=== PATIENT | female | born 1975 | race Hispanic/Latino ===

== ENCOUNTER → 2016-10-27 | Outpatient (CLI) | payer BC | END | disposition home or self-care (01) | LOC: GMA 12:29 | PROVIDERS: ATTEND Nurse Practitioner Family | DX: R53.83 Other fatigue (principal) ==

== ENCOUNTER → 2016-11-02 | Outpatient (CLI) | payer BC ==
--- NOTE | 2016-11-03 08:18 | US ---
Pelvic sonogram, endovaginal CLINICAL HISTORY: Right lower quadrant pain. Pelvic pain. FINDINGS: The uterus measures 9.7 x 4.7 x 6.4 cm. There are 2 uterine fibroids one of these is myometrial to the right of midline 2 x 1.7 x 1.6 cm. The other is myometrial lower left 2.9 x 1 x 2.6 cm Endometrium 13-14 mm which is thick but within normal limits depending on the phase of the menstrual cycle within this premenopausal patient. No fluid or filling defect in the endometrial canal Right ovary measures 2.5 x 2.2 x 1.2 cm. Left ovary measures 2.9 x 2.7 x 2 cm. Within the left ovary there is a thick-walled cystic lesion measuring 2.2 x 1.7 x 1.7 cm likely a physiologic hemorrhagic cyst/corpus luteum. No imaging follow-up recommended. There is no adnexal mass lesion or free fluid IMPRESSION: 2 myometrial uterine fibroids Pelvic sonogram otherwise within normal limits, assuming premenopausal patient Electronically signed by: Олег Lal MD 11/03/2016 8:18 AM CDT
== END ==
LOC: US 13:29
PROVIDERS: ATTEND Nurse Practitioner Family
DX: R10.31 Right lower quadrant pain (principal); D25.9 Leiomyoma of uterus, unspecified

== ENCOUNTER → 2016-12-03 | Outpatient (CLI) | payer BC ==
--- NOTE | 2016-12-06 11:20 | MAM ---
EXAM DESCRIPTION: Screening Mammogram,Bilateral CLINICAL HISTORY: 41 years, Female, Screening mammogram COMPARISON: December 04, 2015 TECHNIQUE: CC and MLO digital mammograms with computer aided detection. FINDINGS: The breast parenchyma is heterogeneously dense which may decrease the sensitivity of mammography. There is no dominant mass nor any suspicious microcalcifications. Benign microcalcifications are present. IMPRESSION: BI-RADS 2: BENIGN FOLLOW-UP: Routine mammography screening. Electronically signed by: Jose Alejandro Stovall MD 12/06/2016 11:19 AM CDT
== END ==
LOC: MAMMO 08:42
PROVIDERS: ATTEND Family Medicine
DX: Z12.31 Encounter for screening mammogram for malignant neoplasm of breast (principal)

== ENCOUNTER → 2020-03-21 | Outpatient (CLI) | payer BC | END | disposition home or self-care (01) | LOC: YCFC.O 09:21 | PROVIDERS: ATTEND Nurse Practitioner Family | DX: Z11.3 Encounter for screening for infections with a predominantly sexual mode of transmission (principal) ==

== ENCOUNTER → 2020-03-26 | Outpatient (CLI) | payer BC ==
--- NOTE | 2020-03-27 08:33 | MAM ---
EXAM DESCRIPTION: 3D Screening BILATERAL : Digital Mammography. CLINICAL HISTORY: 44 years Female ANNUAL SCREENING . No complaints. No personal or family history of breast cancer. Menarche age 13. Childbirth age 25. Premenopausal. No HRT. Lifetime risk of developing breast cancer (Tyrer-Cuzick model)(%): 5.4. COMPARISON: 2-D digital screening bilateral mammography November 2016.. TECHNIQUE: Bilateral CC and MLO projection full-field images, digital tomosynthesis mammographic technique. Bilateral digital 2-D full-field MLO images. CAD available for 2-D images. FINDINGS: The breast parenchymal density pattern is: Heterogeneously dense breast tissue, which may obscure small masses. No skin thickening or nipple retraction. Since the prior study, a partially circumscribed mass is now visualized at the 12:30 - 1:00 position of the anterior right breast approximately 5 cm from the nipple. More dense than the surrounding fibroglandular elements and dimensions are approximately 1.2 x 1.2 cm. Not associated with microcalcifications. Partially circumscribed mass in the anterior third of the lower inner quadrant similar densities to surrounding fibroglandular tissues. Approximately 1.5 cm dimension, 6:30 position. This may have been present on the prior study, not well seen due to technique. Not associated with microcalcifications. A second mass approximately 2 cm posterior to the first mass is also partially circumscribed and in the lower left quadrant of the breast. Not well seen on the prior study. 7:00 position. Also same density as surrounding fibroglandular tissue. Not associated with microcalcifications. IMPRESSION: BI-RADS CATEGORY: 0 - INCOMPLETE- Need additional imaging evaluation. RECOMMENDATIONS: FOLLOW-UP: Recall for additional imaging: Bilateral directed breast ultrasound. Left breast full-field 2-D and tomosynthesis in the LM projection.. Written communication concerning the IMPRESSION and Follow-up, will be mailed to the patient and referring health care provider. Electronically signed by: Jakub Campo MD 03/27/2020 8:31 AM CDT
== END | disposition home or self-care (01) ==
LOC: MAMMO 14:30
PROVIDERS: ATTEND Nurse Practitioner Family
DX: Z12.31 Encounter for screening mammogram for malignant neoplasm of breast (principal)

== ENCOUNTER → 2020-04-28 | Outpatient (CLI) | payer BC ==
--- NOTE | 2020-04-29 16:54 | MAM ---
EXAM DESCRIPTION: 3D Diagnostic, Left (accession [id number]), Breast,Bilateral (accession [id number]): Ultrasound CLINICAL HISTORY: 45 yearsFemaleABN MAMMO one month recall for bilateral partially circumscribed masses. COMPARISON: Bilateral screening digital breast tomosynthesis March 26. TECHNIQUE: Left breast LM projection full-field images, digital tomosynthesis technique. Left breast 2-D digital full-field images: LM projection. CAD available for 2-D images.. Transcutaneous scanning of the bilateral breasts utilizing briscoe-scale and Doppler modes. Scanning performed by the gate services supervisor ; remote monitoring by Dr. Campo note: Patient is primarily Surinamese-speaking. FINDINGS: The breast parenchymal density pattern is: Heterogeneously dense breast tissue, which may obscure small masses. No skin thickening or nipple retraction circumscribed mass middle third of the left breast near the posterior nipple line, 7 cm from the nipple. Also approximately 7 to 8:00 position 4 cm from the nipple. Ultrasound: Scanning bilateral regions of interest. Mostly fibroglandular tissues. Circumscribed anechoic cyst 5 cm from the nipple at 1:00 measuring 1.4 x 1.3 cm. Wider than tall orientation and posterior acoustic enhancement. Adjacent smaller cysts also visualized, with typical features. Any one by 1 cm cyst also visualized with typical features. Cysts are nonvascular. No dominant solid mass, fluid collection, or large calcification. No overlying skin changes. Multiple anechoic cysts, circumscribed montalvo, wider than tall orientation, and posterior acoustic enhancement in the regions of interest left breast. These are surrounded by mostly fibroglandular tissues. These range in size from 7 to 5 mm. Largest cyst more posteriorly measures 1.1 cm x 0.9 cm with typical cystic ultrasound features. These cysts are nonvascular. No dominant solid mass, no fluid collection, no large calcifications. Overlying skin is unremarkable. IMPRESSION: Benign exam. BIRAD CATEGORY: 2 BENIGN FINDINGS. RECOMMENDATIONS: FOLLOW UP: Return to routine digital bilateral mammographic screening, one year interval from March 2020. Written communication explaining the IMPRESSION and follow-up, will be mailed to the patient and referring health care provider. The FINDINGS and the FOLLOW-UP plan were reviewed in person with the patient, with the assistance of a [place]e-[place] network account manager, after the examination. According to the [employer], yearly mammograms are recommended starting at age 40 and continuing as long as a woman is in good health. Any breast change noted on a breast self-exam should be reported promptly to the patient's healthcare provider. Breast MRI is recommended for women with an approximately 20-25% or greater lifetime risk of breast cancer, including women with a strong family history of breast or ovarian cancer and women who have been treated for Hodgkin's disease. A negative mammographic report should not delay tissue diagnosis in patients with significant clinical history or physical findings. Extremely dense breast tissue limits the sensitivity of digital mammography. Electronically signed by: Jakub Campo MD 04/29/2020 4:52 PM CDT
== END ==
LOC: MAMMO 14:58
PROVIDERS: ATTEND Family Medicine
DX: R92.8 Other abnormal and inconclusive findings on diagnostic imaging of breast (principal)
CPT/HCPCS: 76641; 77065; G0279

== ENCOUNTER 2020-06-02 16:51 | Inpatient (IN) | payer BC ==
--- NOTE | 2020-06-02 16:53 | ED.PDOC ---
History of Present Illness - General Time Seen by Provider: 06/02/20 16:52 Source: patient - History of Present Illness Initial Comments: 45-year-old female who is from Dr. Anderson's clinic for chief complaint of shortness of breath and chest tightness. Patient reports onset of symptoms 5 days ago with gradual worsening. Symptoms are much worse since this morning. She now reports constant tightness in the center of her chest with occasional radiation to the back, currently 10/10 severity, worse with coughing and heavy breathing, not necessarily worsened with exertion, not worse with palpation. She additionally reports frequent cough which is productive now for yellow phlegm. She has been taking [id number] Robitussin with little relief. Patient was seen today by Dr. Anderson and was found to be positive for COVID-19 and strep. She was also found to have oxygen desaturation to 90-92% with ambulation. Patient was recommended to come to the ED for further evaluation. She does report that her also recently tested positive for COVID-19. Additionally reports sore throat, body aches, subjective fevers and chills, nausea. Denies vomiting, diarrhea, abdominal pain, leg swelling, urinary symptoms, headache, congestion. Patient is otherwise relatively healthy. Denies any history of cardiac/respiratory issues or diabetes. Allergies/Adverse Reactions: Allergies NO KNOWN ALLERGY Allergy (Verified 06/02/20 17:11) Home Medications: Ambulatory Orders NK 06/02/20 Review of Systems - Review of Systems Review of Systems: 06/02/20 17:12 as per HPI All other Systems: Reviewed and Negative Past Medical History (General) - Patient Medical History Hx Congestive Heart Failure: No Hx Diabetes: No - Social History Hx Alcohol Use: Yes - Female History Patient : No Family Medical History - Family History Mother Family History: No Known Living Status: Still Living Physical Exam - Physical Exam General Appearance: Alert, Comfortable, No apparent distress Eye Exam: bilateral normal Ears, Nose, Throat: hearing grossly normal, pharyngeal erythema, other - no tonsillar exudate or swelling Neck: full range of motion, supple, normal inspection Respiratory: chest non-tender, no respiratory distress, no accessory muscle use, rales - BL lower and middle lung carrion w/o rhonchi or wheezing, good air movement throughout, able to speak in full sentences Cardiovascular/Chest: normal peripheral pulses, regular rate, rhythm, no edema, no gallop, no JVD, no murmur Peripheral Pulses: radial,right: 2+, radial,left: 2+ Gastrointestinal/Abdominal: soft, no organomegaly, tenderness - mild to epigastric region w/o guarding or rebound Back Exam: normal inspection, no CVA tenderness, no vertebral tenderness Extremity: normal range of motion, non-tender, normal inspection, no pedal edema, no calf tenderness, normal capillary refill Neurologic: tool distributor II-XII nml as tested, no motor/sensory deficits, alert, normal mood/affect, oriented x 3 Skin Exam: normal color, warm/dry Progress - Progress Progress: 06/02/20 17:14 Dyspnea, chest tightness -Suspect secondary to COVID-19 pneumonia. Consider also ACS, bacterial pneumonia, CHF, musculoskeletal chest pain, reactive airway disease, PE, other -Patient mostly with SPO2 92-94% on room air but briefly desatted to 88-90% with activity/ambulation, quickly corrects with 2 L supplemental oxygen via nasal cannula. Otherwise vitals within normal limits. -Obtain rapid flu testing, blood work, cardiac work-up, COVID-19 panel -Place peripheral IV, Decadron 6 mg IV, 1 L normal saline bolus, Zofran 4 mg IV, reassess 06/02/20 18:04 -Labs were consistent with COVID-19 infection. She does have modestly elevated D-dimer level will obtain CTA chest. Otherwise labs show leukopenia and slightly elevated CRP level. Troponin level normal. Patient has remained stable. She did have some burning sensation throughout her body following the Decadron and Zofran. Symptoms are improved with Benadryl 25 mg IV. 06/02/20 18:56 -CTA chest reviewed. Reveals bilateral groundglass opacities in bilateral lower small infiltrates per my read. I do not see any evidence of PE. -Patient continues to have desats to 88% with ambulation/activity. Otherwise she remains stable. After some discussion with patient and family at bedside, they are amenable to hospital admission for COVID-19 pneumonia with acute hypoxia. I have spoken with Kamran Gomez who accepts the patient for admission. We will begin therapy in the ER with Rocephin 1 g IV and azithromycin 500 mg IV. The hospitalist to put in further orders for Lovenox and remdesivir. Also to consider further IV Decadron. Shorty Watson MD Billing #[id number] 06/02/20 17:00 EKG STAT 06/02/20 18:03 CTA Chest [CT] Stat 06/02/20 18:55 Azithromycin IV [Zithromax IV] 500 mg Sodium Chloride 0.9% 250Ml [NS 250ml] 250 ml IVPB ONCE cefTRIAXone SODIUM [Rocephin] 1 gm Sodium Chl 0.9% 50Ml Min-Bag+ [NS 50ml MINI-BAG+] 50 ml IVPB ONCE Laboratory Results - last 24 hr 06/02/20 06/02/20 06/02/20 17:18 17:18 17:18 WBC 3.9 L RBC 5.07 Hgb 14.1 Hct 41.7 MCV 82.2 MCH 27.9 MCHC 34.0 RDW 16.7 H Plt Count 226 MPV 7.9 Absolute Neuts (auto) 1.30 L Absolute Lymphs (auto) 2.00 Absolute Monos (auto) 0.50 Absolute Eos (auto) 0.10 Absolute Basos (auto) 0.00 Neutrophils % 34.2 L Lymphocytes % 51.5 H Monocytes % 11.7 H Eosinophils % 1.3 Basophils % 1.3 PTT (SP) 27.0 D-Dimer, Quantitative 725.0 H* Sodium 138 Potassium 4.0 Chloride 102 Carbon Dioxide 25 Anion Gap 15.0 BUN 8 Creatinine 0.77 BUN/Creatinine Ratio 10.4 Random Glucose 112 H Serum Osmolality 274.8 L Calcium 8.8 Magnesium 2.1 Total Bilirubin 0.3 AST 34 ALT 30 Alkaline Phosphatase 79 LD Total 162 Creatine Kinase 58 Troponin I C-Reactive Protein 5.6 H B-Natriuretic Peptide 36.8 Serum Total Protein 7.5 Albumin 3.7 Globulin 3.8 H Albumin/Globulin Ratio 1.0 L 06/02/20 17:18 WBC RBC Hgb Hct MCV MCH MCHC RDW Plt Count MPV Absolute Neuts (auto) Absolute Lymphs (auto) Absolute Monos (auto) Absolute Eos (auto) Absolute Basos (auto) Neutrophils % Lymphocytes % Monocytes % Eosinophils % Basophils % PTT (SP) D-Dimer, Quantitative Sodium Potassium Chloride Carbon Dioxide Anion Gap BUN Creatinine BUN/Creatinine Ratio Random Glucose Serum Osmolality Calcium Magnesium Total Bilirubin AST ALT Alkaline Phosphatase LD Total Creatine Kinase Troponin I < 0.02 C-Reactive Protein B-Natriuretic Peptide Serum Total Protein Albumin Globulin Albumin/Globulin Ratio - EKG/XRAY/CT EKG: Sinus - Normal sinus rhythm, heart rate 80, no ST elevations or Q waves noted, axis normal, intervals normal, appears largely unchanged from 09/08/2014 EKG XRAY: chest - Per my read, bilateral lower lobe opacities noted concerning for possible infiltrate/infectious process. Findings can be consistent with COVID- 19 Departure - Departure Clinical Impression: Hypoxemia, Pneumonia due to COVID-19 virus Time of Disposition: 18:56 Disposition: Admit Patient Condition: Fair Referrals: Олег Anderson MD [Primary Care Provider] - 1-2 Weeks Home Medications: Ambulatory Orders NK 06/02/20 Decision To Admit - Decistion To Admit Decision to Admit Reason: Admit from ER Decision to Admit Date: 06/02/20 Decision to Admit Time: 18:56
[2020-06-02] MEDS ORDERED: SODIUM CHLORIDE 0.9% 1000ML 1,000 ML IVS ONE (17:07)
[2020-06-02] MEDS ORDERED: DEXAMETHASONE INJ 4 MG/ML VIAL IV ONE (17:07)
[2020-06-02] MEDS ORDERED: ONDANSETRON INJ 4 MG/2 ML VIAL IV ONE (17:16)
[2020-06-02] MEDS ORDERED: diphenhydrAMINE HCL 50 MG/ML VIAL IV ONE (17:28)
[2020-06-02] MEDS ORDERED: diphenhydrAMINE HCL 50 MG/ML VIAL ONE (17:29)
--- NOTE | 2020-06-02 17:33 | RAD ---
EXAM DESCRIPTION: Chest,1 View CLINICAL HISTORY: COVID-19+, dyspnea COMPARISON: Chest radiograph dated September 18, 2014 TECHNIQUE: One view radiograph of the chest FINDINGS: Cardiac silhouette shows normal heart size. Pulmonary vascularity is within normal limits. Increased opacities in the bilateral lower lung zones. Costophrenic angles are sharp. No pneumothorax. No acute osseous abnormality. IMPRESSION: Increased opacities bilateral lower lung zones may represent pulmonary infiltrate versus atelectasis. Recommend follow-up chest radiograph to resolution. Electronically signed by: Bereket Ch MD 06/02/2020 5:31 PM [facility]
[2020-06-02] MEDS ORDERED: AZITHROMYCIN IV 500 MG in SODIUM CHLORIDE 0.9% 250ML 250 ML IVPB ONE (18:55)
[2020-06-02] MEDS ORDERED: cefTRIAXone SODIUM 1 GM in SODIUM CHL 0.9% 50ML MIN-BAG+ 50 ML IVPB ONE (18:55)
--- NOTE | 2020-06-02 18:59 | CT ---
EXAM: CTA chest with contrast CLINICAL INDICATION: Chest pain, shortness of breath COMPARISON: None. TECHNIQUE: CTA of the chest was performed using contiguous axial 2.5mm postcontrast sections through the chest including IV contrast with 3-D reconstructions. This exam was performed according to our departmental dose-optimization program, which includes automated exposure control, adjustment of the mA and/or kV according to patient size and/or use of iterative reconstruction technique. FINDINGS: There is no evidence of pulmonary embolism. There are no findings to suggest aortic dissection. There are no enlarged mediastinal or hilar lymph nodes. The visualized portions of the upper abdominal structures are unremarkable. There are multifocal groundglass opacities and infiltrates in the bilateral upper lobes, lower lobes and right middle lobe which appear mild to moderate and are most prominent in the lower lobes. There is no pneumothorax or pleural effusion. IMPRESSION: 1. No evidence of pulmonary embolism. 2. Bilateral pulmonary infiltrates, consistent with pneumonia. Electronically signed by: Gianluca Rust MD 06/02/2020 6:57 PM HOME HEALTH CARE COORDINATOR
--- NOTE | 2020-06-02 19:40 | HP ---
SUPERVISING PHYSICIAN: Ish Minor MD CHIEF COMPLAINT: Increasing shortness of breath. HISTORY OF PRESENT ILLNESS: Ms. Newman is a 45-year-old female referred from Dr. Anderson's clinic at [facility] with some shortness of breath and chest tightness. She endorses that her symptoms started about 5 days previously and had gradually worsened until this morning. She was reporting a constant chest tightness in the center of the chest and radiating to her back, worse with cough, increasing work to breathe, shortness of breath with exertion. She also notes she has a cough which has become productive over the last several days with some yellow phlegm. She has been trying to take kzzo-szw-yltaakf medications including Robitussin, but has had little to no relief. She was seen by Dr. Anderson and tested for COVID and strep and found to be positive for both. Initially, saturations were 90 to 92% on room air. She was then referred to the Emergency Room for evaluation. Her had just recently tested positive for COVID-19. Her vital signs on presentation to the ER showed she was afebrile, saturation 90% on room air, heart rate 92, respirations 26, blood pressure 119/89. She had a CT of the chest and per radiologic interpretation showed no evidence of pulmonary embolism, but noted bilateral pulmonary infiltrates consistent with pneumonia. Laboratory studies showed she had a white count of 3.9, but no leukocytes to shift. Her initial D-dimer was 725 and C-reactive protein was 5.6. Her other chemistries included electrolytes and creatinine within normal limits with creatinine 0.7. Liver functions were within normal limits. Urinalysis unremarkable. She was tested for influenza A and B by PCR and was found to be negative. Given her symptomatology and findings of COVID pneumonia probably and worsening symptoms and laboratory studies, the ER physician requested the patient be admitted for treatment of pneumonia with associated COVID-19. She was started on Decadron, given Rocephin and azithromycin in the ER and is now going to be admitted. She is admitted in stable condition. PAST MEDICAL HISTORY: No significant medical history. PAST SURGICAL HISTORY: 1. Cholecystectomy. MEDICATIONS: No medications listed. ALLERGIES: No allergies listed. FAMILY HISTORY: Noncontributory. SOCIAL HISTORY: The patient is . She lives in [place]. She is [place]vzdlmbkb-inkf. She is a housewife. She has no history of smoking, does not drink alcohol or use illicit drugs. REVIEW OF SYSTEMS: CONSTITUTIONAL: She reports body aches, subjective fevers, chills. HEENT: Noted sore throat, nasal congestion. Denies headaches, earaches, vision changes. RESPIRATORY: Positive for increasing shortness of breath and cough as noted in history of present illness. CARDIOVASCULAR: Positive for chest tightness worsened with cough. Denies actual palpitations, tachycardia or syncopal episodes. GASTROINTESTINAL: Denies nausea, vomiting, diarrhea, constipation or abdominal pain. GENITOURINARY: Denies dysuria, hematuria, polyuria. MUSCULOSKELETAL: Denies arthralgias, joint swelling. SKIN: Denies lesions, rashes, moles or unexplained changes. NEUROLOGIC: Denies headaches, vision changes, ataxia, seizures or other focal motor deficits. HEMATOLOGIC: Denies unexplained bleeding, bruising or transfusion reactions. PHYSICAL EXAMINATION: VITAL SIGNS: Temperature 97.3, pulse 92, respirations 26, blood pressure 119/89, O2 saturation 90% on room air at rest and 88% on room air with exertional effort. GENERAL: The patient is resting comfortably in no acute distress. HEENT: Tympanic membranes clear bilaterally. Oropharynx is pink, moist. Posterior pharyngeal area is mildly erythematous, but no tonsillar exudate or swelling. NECK: Supple, nontender with full range of motion. No jugular venous distention noted. RESPIRATORY: Lung sounds are diminished bilaterally with faint rales heard in bilateral lower lung carrion. No obvious rhonchi or wheezing. CARDIOVASCULAR: Regular rate and rhythm without any appreciable murmurs, gallops, or rubs. ABDOMEN: Soft, nontender. Positive bowel sounds. EXTREMITIES: There is no cyanosis, clubbing or edema. NEUROLOGIC: Cranial nerves II-XII are grossly intact. Facial features are symmetrical. Extraocular movements are within normal limits. There is no nystagmus noted. The patient is alert and oriented times three. SKIN: Warm, pink and dry. RADIOLOGY: CTA of the chest per radiologic interpretation showed no evidence of pulmonary embolism, note of bilateral pulmonary infiltrates consistent with pneumonia. ASSESSMENT: 1. COVID-19 pneumonia. PLAN: Ms. Newman is going to be admitted for treatment of COVID associated pneumonia. She will be on Decadron, Remdesivir, azithromycin and Rocephin, albuterol inhalers and Lovenox. We will follow her labs per protocol. She will be on oxygen to maintain O2 saturations 92 to 94%. I anticipate her length of stay to be at least 2 to 3 days. Until the patient can transition to outpatient management, we will continue to monitor and treat as needed. #[id number] MTDD
[2020-06-02] MEDS ORDERED: ONDANSETRON INJ 4 MG/2 ML VIAL IV PRN (20:17)
[2020-06-02] MEDS ORDERED: IBUPROFEN 400 MG TAB PO PRN (20:17)
[2020-06-02] MEDS ORDERED: TEMAZEPAM 15 MG CAP PO PRN (20:17)
[2020-06-02] MEDS ORDERED: ACETAMINOPHEN 325 MG TAB PO PRN (20:17)
[2020-06-02] MEDS ORDERED: MAGNESIUM HYDROXIDE 30 ML UD PO PRN (20:17)
[2020-06-02] MEDS ORDERED: SODIUM CHLORIDE 0.9% (FLUSH) 10 ML SYG IV PRN (20:17)
[2020-06-02] MEDS ORDERED: REMDESIVIR 200 MG in SODIUM CHLORIDE 0.9% 250ML 250 ML IVPB ONE (20:21)
[2020-06-02] MEDS ORDERED: REMDESIVIR 100 MG ONE ×2 (20:28→20:29)
[2020-06-02] MEDS ORDERED: SODIUM CHLORIDE 0.9% 250ML 0 ML ONE (20:28)
[2020-06-02] MEDS ORDERED: IV SET AND CAP CHANGE INJ INJ SCH (20:30)
[2020-06-02] MEDS ORDERED: SODIUM CHLORIDE 0.9% 100ML 100 ML IVPB ONE (20:30)
[2020-06-02] MEDS ORDERED: SODIUM CHLORIDE 0.9% 250ML 250 ML ONE (21:23)
[2020-06-02] MEDS: ENOXAPARIN SODIUM 40 MG/0.4 ML SYG SUBCU SCH (21:30)
[2020-06-02] MEDS ORDERED: ALBUTEROL INHALER 64 PUFF/8GM INH PRN (23:12)
[2020-06-03] MEDS: PANTOPRAZOLE SODIUM IV 40 MG VIAL IV SCH (06:06)
[2020-06-03] MEDS ORDERED: REMDESIVIR 0 MG ONE (07:05)
[2020-06-03] MEDS ORDERED: AZITHROMYCIN IV 500 MG VIAL IVPB ONE (07:05)
[2020-06-03] MEDS ORDERED: cefTRIAXone SODIUM 1 GM VIAL ONE (07:05)
[2020-06-03] MEDS ORDERED: SODIUM CHLORIDE 0.9% 250ML 250 ML ONE (07:05)
[2020-06-03] MEDS ORDERED: SODIUM CHL 0.9% 250ML (AVIVA) 0 ML IVPB ONE (07:06)
[2020-06-03] MEDS ORDERED: SODIUM CHL 0.9% 50ML MIN-BAG+ 50 ML IVPB ONE (07:06)
--- NOTE | 2020-06-03 07:06 | RAD ---
EXAM: XR Chest, 1 View CLINICAL HISTORY: The patient is 45 years old and is Female; COVID PNA TECHNIQUE: Frontal view of the chest. COMPARISON: Chest x-ray 06/02/2020 FINDINGS: Lungs: Mildly increased opacities in the lower lung carrion and right middle lobe, similar to the prior exam. Pleural space: Blunting of the left costophrenic angle which may represent a small pleural effusion. No pneumothorax. Heart: Unremarkable. No cardiomegaly. Mediastinum: Unremarkable. Bones/joints: Unremarkable. IMPRESSION: 1. Mildly increased opacities in the lower lung carrion and right middle lobe similar to the prior exam. 2. Blunting of the left costophrenic angle which may represent a small pleural effusion. Electronically signed by: Mohan Buck MD 06/03/2020 7:[address] [facility]
[2020-06-03] MEDS: ALBUTEROL INHALER 64 PUFF/8GM INH SCH ×4 (08:35→20:45)
[2020-06-03] MEDS: DEXAMETHASONE INJ 10 MG/ML VIAL IV SCH (08:43)
[2020-06-03] MEDS: cefTRIAXone SODIUM 1 GM in SODIUM CHL 0.9% 50ML MIN-BAG+ 50 ML IVPB SCH (08:43)
[2020-06-03] MEDS: BIFIDOBACTERIUM INFANTIS 4 MG CAP PO SCH (08:43)
[2020-06-03] MEDS: AZITHROMYCIN IV 500 MG in SODIUM CHLORIDE 0.9% 250ML 250 ML IVPB SCH (09:14)
[2020-06-03] MEDS: PROMETHAZINE W/CODEINE SYR 5 ML UD PO PRN (13:28)
--- NOTE | 2020-06-03 18:55 | PN ---
SUPERVISING PHYSICIAN: Ish Minor MD DATE: 06/03/20 SUBJECTIVE: The patient is still short of breath. She has a significant cough, otherwise she says she is a little bit better than yesterday. She is still desatting with any room air attempts and essential with any ambulatory effort. She has been afebrile. She has had no nausea or vomiting. She said she has had a little back pain on her right side that radiates down into her leg byt this has been present for several days if not weeks. It apparently does not appear to be new. Her urine does not show she has a urinary tract infection and the pain is not reproducible on palpation. OBJECTIVE: VITAL SIGNS: Temperature 97.9, pulse 75, blood pressure 110/75, respirations 16, oxygen saturation 92% on 2 liter nasal cannula at rest, desatting into the high 80s on room ambulation GENERAL: Patient looks to be comfortable, she does look to be a little short of breath at times when she is trying to converse but she is not in any distress. CHEST: Lung sounds are just diminished bilaterally toward the bases. I am not hearing any rhonchi, rales, or wheezes. HEART: Regular rate and rhythm. ABDOMEN: Soft, non-tender, positive bowel sounds. EXTREMITIES: Without edema. NEUROLOGICAL: She is alert and oriented x 3. LABORATORY: White count 3,500, hemoglobin 13.3, hematocrit 38.8, platelet count 228,000, differential shows to be without a left shift. Coagulation studies show D-dimer down to 761. Chemistries show normal, creatinine 0.48, C-reactive protein down to 3.6. RADIOLOGY: Repeat chest x-ray today shows mildly increased opacities in the lower lung carrion and right middle lobe, similar to previous exams. There is some blunting to the left costophrenic angle which may represent a small pleural effusion. ASSESSMENT: Covid-19 pneumonia. PLAN: Will continue with treatment of her Covid PROGRESS NOTE with Decadron, Remdesivir, azithromycin and Rocephin. She is still remaining on 02, again, on admission she was showing some desaturations on room air down to 88%. Hopefully, she will continue to trend her numbers on her labs and decrease her requirements for oxygen and we can discharge within the next couple of days. Until we can transition her to outpatient management, we will continue to monitor and treat as needed. #[id number] [facility]
[2020-06-03] MEDS: ENOXAPARIN SODIUM 40 MG/0.4 ML SYG SUBCU SCH (21:43)
[2020-06-03] MEDS: REMDESIVIR 100 MG in SODIUM CHLORIDE 0.9% 250ML 250 ML IVPB SCH (21:52)
[2020-06-04] MEDS: PANTOPRAZOLE SODIUM IV 40 MG VIAL IV SCH (05:58)
[2020-06-04] MEDS: ALBUTEROL INHALER 64 PUFF/8GM INH SCH ×4 (08:29→21:00)
[2020-06-04] MEDS: cefTRIAXone SODIUM 1 GM in SODIUM CHL 0.9% 50ML MIN-BAG+ 50 ML IVPB SCH (08:50)
[2020-06-04] MEDS: DEXAMETHASONE INJ 10 MG/ML VIAL IV SCH (08:50)
[2020-06-04] MEDS: BIFIDOBACTERIUM INFANTIS 4 MG CAP PO SCH (08:50)
[2020-06-04] MEDS: AZITHROMYCIN IV 500 MG in SODIUM CHLORIDE 0.9% 250ML 250 ML IVPB SCH (08:51)
[2020-06-04] MEDS ORDERED: POTASSIUM CHLORIDE 20 MEQ TAB PO ONE (09:40)
[2020-06-04] MEDS ORDERED: POTASSIUM CHLORIDE 20 MEQ TAB ONE (10:05)
[2020-06-04] MEDS: PROMETHAZINE W/CODEINE SYR 5 ML UD PO PRN ×3 (10:30→20:50)
--- NOTE | 2020-06-04 11:40 | PN ---
SUPERVISING PHYSICIAN: Ish Minor MD DATE: 06/04/20 SUBJECTIVE: The patient is sitting up in bed. She complains of a cough that has worsened. Otherwise, she denies shortness of breath, nausea, vomiting or diarrhea. OBJECTIVE: VITAL SIGNS: Temperature 98.5, heart rate 71, blood pressure 103/61, respiratory rate 16, O2 saturation 93% on 1 liter nasal cannula. RESPIRATORY: Essentially clear to auscultation bilaterally. CARDIAC: Regular rate and rhythm. NEUROLOGIC: Awake, alert and oriented times three. LABORATORY: CBC is unremarkable. D-dimer is down to 583. Potassium 3.5, calcium 8.3, C-reactive protein 1.3. All other labs and films have been reviewed via the EMR. ASSESSMENT: 1. COVID-19 pneumonitis. PLAN: We will continue present supportive care and continue with COVID guidelines. She is still on oxygen, so we will try to wean her off of that as soon as possible. Hopefully, she can be discharged tomorrow. I have also ordered some guaifenesin for her cough and given her some potassium supplementation. She will also need an ambulation study in case she needs to go home on oxygen. Lab has been ordered for tomorrow. We will continue to monitor the patient closely and follow as needed. [facility][id number] [facility]
[2020-06-04] MEDS: guaiFENesin ER TAB 600 MG TAB PO SCH ×2 (11:43→20:12)
[2020-06-04] MEDS: REMDESIVIR 100 MG in SODIUM CHLORIDE 0.9% 250ML 250 ML IVPB SCH (20:11)
[2020-06-04] MEDS: ENOXAPARIN SODIUM 40 MG/0.4 ML SYG SUBCU SCH (20:11)
[2020-06-05 04:35] VITALS: O2SAT 94
[2020-06-05] MEDS: PROMETHAZINE W/CODEINE SYR 5 ML UD PO PRN (05:08)
[2020-06-05] MEDS: PANTOPRAZOLE SODIUM IV 40 MG VIAL IV SCH (06:05)
--- NOTE | 2020-06-05 07:10 | RAD ---
EXAM: XR Chest, 1 View CLINICAL HISTORY: The patient is 45 years old and is Female; COVID PNA TECHNIQUE: Single upright portable view of the chest. COMPARISON: June 03, 2020 6:42 AM. FINDINGS: Lungs: Bibasilar airspace opacities, not significantly changed. No pulmonary vascular congestion. Pleural space: No pleural effusion or pneumothorax. Heart: Unremarkable. No cardiomegaly. Mediastinum: Unremarkable. Bones/joints: Unremarkable. Upper abdomen: Cholecystectomy. No free air in the visualized upper abdomen. IMPRESSION: No significant change from the prior exam. Electronically signed by: Deya Winston MD 06/05/2020 7:09 AM [employer]
[2020-06-05] MEDS: guaiFENesin ER TAB 600 MG TAB PO SCH (09:05)
[2020-06-05] MEDS: cefTRIAXone SODIUM 1 GM in SODIUM CHL 0.9% 50ML MIN-BAG+ 50 ML IVPB SCH (09:05)
[2020-06-05] MEDS: DEXAMETHASONE INJ 10 MG/ML VIAL IV SCH (09:05)
[2020-06-05] MEDS: BIFIDOBACTERIUM INFANTIS 4 MG CAP PO SCH (09:05)
[2020-06-05] MEDS: ALBUTEROL INHALER 64 PUFF/8GM INH SCH ×3 (09:35→17:10)
[2020-06-05] MEDS: AZITHROMYCIN IV 500 MG in SODIUM CHLORIDE 0.9% 250ML 250 ML IVPB SCH (09:53)
[2020-06-05 14:26] VITALS: TEMP 98.3
[2020-06-05 17:00] VITALS: BP 108/58
[2020-06-06] MEDS ORDERED: PANTOPRAZOLE SODIUM TAB 40 MG PO SCH (06:30)
--- NOTE | 2020-06-06 08:10 | DS ---
SUPERVISING PHYSICIAN: Ish Minor MD DISCHARGE DIAGNOSIS: 1. COVID-19 pneumonitis. HISTORY OF PRESENT ILLNESS: This is a 45-year-old female patient who was referred from Dr. Anderson's clinic with some shortness of breath and chest tightness. She had had symptoms about 5 days previous and had worsened. Her cough had become productive and she had some yellow phlegm. She took utek-lvz-mesanlw medications including Robitussin. She was tested for COVID and strep and found to be positive for both. Initially, saturations were 90 to 92% on room air. She was then referred to the Emergency Room for evaluation. Her had just recently tested positive for COVID-19. Her vital signs showed saturation 90% on room air, heart rate 92, respirations 26, blood pressure 119/89. She had a CT of the chest showed no evidence of pulmonary embolism, but noted bilateral pulmonary infiltrates consistent with pneumonia. Laboratory studies showed she had a white count of 3.9, but no left shift on differential. Her D-dimer was 725 and C-reactive protein was 5.6. Her electrolytes were within normal limits. She negative for influenza A and B. She was admitted to the hospital for treatment of COVID-19 and strep. She was started on Decadron, Rocephin and azithromycin in the ER and admitted to the floor. HOSPITAL COURSE: The patient was admitted to the hospital and started on the pneumonia and COVID guidelines. Her labs and clinical presentation were monitored closely. She improved over the next several days, but it was difficult to get her off of her oxygen. In fact, the day prior to her discharge, she failed her ambulation study for oxygen. With exertion, she went down to the mid-80s. Today, she is stabilized to the point that she is off of oxygen and she maintains her saturations at 93% even with exertion. She will be discharged home today in stable condition. LABORATORY: Initial WBCs 3.9 and today are 8. Hemoglobin and hematocrit have been stable at 12.6 and 36.9. D-dimer initially was 725 and today is 353. Fibrinogen was 487 and is now 367. Electrolytes are basically within normal limits. BUN 16, creatinine 0.45. Troponin less than 0.02. CRP was 5.6 and today and it is less than 0.8. RADIOLOGY: Her final chest x-ray shows no significant change from prior exam. DISCHARGE PLAN: The patient will be discharged home from the hospital in stable condition. She is to resume her previous diet and increase her activity as tolerated. She had no home medications, but she will continue on Align, cefdinir, dexamethasone, Eliquis, guaifenesin, albuterol inhaler, azithromycin and codeine cough syrup. [facility] was consulted and there were no issues for narcotics found. She will need to get a followup appointment with Dr. Anderson in the next week. She was given 30 days of Eliquis samples. DISCHARGE MEDICATIONS: 1. Align. 2. Cefdinir for 7 days. 3. Decadron for 5 days. 4. Eliquis for 30 days. 5. Guaifenesin as needed. 6. Albuterol inhaler as needed. 7. Azithromycin for 4 days. 8. Promethazine with codeine 5 to 10 mL p.o. q.6h. p.r.n., #120 mL with no refills. #[id number] [facility]
== END 2020-06-05 16:30 | disposition home or self-care (01) | DRG 177 ==
LOC: ER 16:51 → MS 19:38 → OBSVTOIN 19:38
PROVIDERS: ADMIT Nurse Practitioner Family; ATTEND Nurse Practitioner Acute Care
PROC: B32T1ZZ Computerized Tomography (CT Scan) of Left Pulmonary Artery using Low Osmolar Contrast (ICD-10-PCS; principal; 2020-06-02)
PROC: B32S1ZZ Computerized Tomography (CT Scan) of Right Pulmonary Artery using Low Osmolar Contrast (ICD-10-PCS; 2020-06-02)
PROC: XW033E5 Introduction of Remdesivir Anti-infective into Peripheral Vein, Percutaneous Approach, New Technology Group 5 (ICD-10-PCS; 2020-06-02)
DX: U07.1 COVID-19 (principal); J12.89 Other viral pneumonia; J02.0 Streptococcal pharyngitis

== ENCOUNTER 2020-06-17 15:44 | Emergency (ER) | payer BC ==
[2020-06-17] MEDS ORDERED: ACETAMINOPHEN 500 MG TAB PO ONE ×2 (16:22→16:26)
--- NOTE | 2020-06-17 16:30 | ED.PDOC ---
History of Present Illness - General Chief Complaint: Respiratory Problem Stated Complaint: difficulty breathing,cough,dizzy,MODI Time Seen by Provider: 06/17/20 15:53 Source: patient Additional Information: The patient is a 45-year-old female presents to the emergency department complaints of trouble breathing dizziness and a headache. She states that she was diagnosed with Covid 11 days ago and has had the symptoms since then. She states that she went to her primary care physician's office to get an infusion and they told herComes to the ER for her complaint. She deniesAny chest pain she complains of chills and night sweats.She denies any hypoxemia denies any history of blood clots. States that she has been treated for Covid for the last 7 days, But she does not know what medication she is on. She states that she knows for sure she is not on any steroid. She states that She has had the symptoms for a long time since her diagnosis of Covid which is comes to the ER today to get tested for Covid to see if her Covid is gone.Positive test was 11 days ago as per patient - History of Present Illness Timing/Duration: days - 11 Severity: mild Activities at Onset: activity Possible Cause: other - covid Improving Factors: rest Worsening Factors: nothing Associated Symptoms: cough Allergies/Adverse Reactions: Allergies NO KNOWN ALLERGY Allergy (Verified 06/02/20 17:11) Home Medications: Ambulatory Orders Albuterol Inhaler [Ventolin Hfa Inhaler] 2 puff INH PRN PRN inh 06/05/20 Albuterol Inhaler [Ventolin Hfa Inhaler] 2 puff INH RTQID inh 06/05/20 Apixaban [Eliquis] 5 mg PO BID #60 tab 06/05/20 Azithromycin Tab [Zithromax Tab] 250 mg PO QD #4 tab 06/05/20 Bifidobacterium Infantis [Align] 4 mg PO DAILY cap 06/05/20 Cefdinir 300 mg PO BID #14 capsule 06/05/20 Dexamethasone Tab [Decadron Tab] 4 mg PO DAILY #5 tab 06/05/20 Sasrhqiiiywu-Kgruzmfwdujlg-Uez [Promethazine Vc/Codeine] 5 - 10 ml PO Q6H PRN #120 ml 06/05/20 guaiFENesin ER TAB [Mucinex Tab] 600 mg PO BID tab 06/05/20 Review of Systems - Review of Systems Constitutional: States: chills. Denies: fever EENTM: Denies: eye pain, tearing Respiratory: States: cough, short of breath. Denies: orthopnea, stridor, wheezing Cardiology: Denies: chest pain, palpitations, syncope Gastrointestinal/Abdominal: Denies: abdominal pain, diarrhea, nausea Genitourinary: Denies: discharge Musculoskeletal: Denies: back pain, gout, joint swelling, muscle pain Skin: Denies: change in color Neurological: States: headache. Denies: anxiety, depressed, emotional problems, numbness, paresthesia, pre-existing deficit, seizure, tingling, tremors, weakness, other Endocrine: Denies: excessive sweating, flushing, intolerance to cold, intolerance to heat, increased thirst, increased urine Hematologic/Lymphatic: Denies: anemia, easy bruising Past Medical History (General) - Patient Medical History Hx Seizures: No Hx Stroke: No Hx Dementia: No Hx Asthma: No Hx of COPD: No Hx Cardiac Disorders: No Hx Congestive Heart Failure: No Hx Pacemaker: No Hx Hypertension: No Hx Thyroid Disease: No Hx Diabetes: No Hx Gastroesophageal Reflux: No Hx Renal Disease: No Hx Cancer: No Hx of HIV: No Hx Hepatitis C: No Hx MRSA: No Surgical History: cholecystectomy - Vaccination History Hx Tetanus, Diphtheria Vaccination: No Hx Influenza Vaccination: Yes Hx Pneumococcal Vaccination: No - Social History Hx Tobacco Use: No Hx Alcohol Use: No Hx Substance Use: No Hx Physical Abuse: No Hx Emotional Abuse: No - Female History Patient : No Family Medical History - Family History Mother Family History: No Known Living Status: Still Living Father Living Status: Still Living Hx Family Hypertension: Yes Physical Exam - Physical Exam General Appearance: Alert, No apparent distress Eyes, Ears, Nose, Throat Exam: PERRL/EOMI, pharynx normal Neck: non-tender, full range of motion, supple Respiratory: chest non-tender, lungs clear, normal breath sounds, no respiratory distress, no accessory muscle use Cardiovascular/Chest: normal peripheral pulses, regular rate, rhythm, no edema, no gallop, no JVD, no murmur, other - negative suresh sign Peripheral Pulses: radial,right: 2+, radial,left: 2+, posterior tibialis,right: 2+, posterior tibialis,left: 2+ Gastrointestinal/Abdominal: normal bowel sounds, non tender, soft Extremity: normal range of motion, non-tender, normal inspection, no pedal edema, no calf tenderness Neurologic: nurse transplant II-XII nml as tested, no motor/sensory deficits, alert, normal mood/affect, oriented x 3, other - NIH 0 Skin Exam: normal color, warm/dry, cyanosis Lymphatic: no adenopathy Progress - Progress Progress: 06/17/20 16:35 Patient is a 45-year-old female presents emergency department with complaints consistent with Covid.Vitals are stable at presentation no hypoxemia. The patient ambulates without any difficulty breathing.She states that she has had some exertional dyspnea at home some dizziness and headaches she has had since a diagnosis of Covid. She states that is slightly improved but is still present. She states that her main concern today is getting Covid test repeated. I advised patient her last Covid test was 11 days ago I recommend that she wait some more specialist thinks she still has symptoms.The patient states that she was sent from her PCP office for these symptoms.Returned his call the patient's PCP office and nursing staff talked to the nurse that confirmed the symptoms stating that the patient isReturned his call the patient's PCP office and nursing staff talked to the nurse that confirmed the symptoms . perc sCORE 0 WELLS SCORE 0 Patient has had extra time she reports improvement in his symptoms. Discharge the patient patient advised follow-up primary care physician 1 to 2 days. Departure - Departure Clinical Impression: COVID-19, Upper respiratory infection Disposition: Discharge to Home or Self Care Departure Forms: ED Discharge - Pt. Copy, Patient Portal Self Enrollment Instructions: Coronavirus Disease 2019 (COVID-19) Referrals: Олег Anderson MD [Primary Care Provider] - 1-2 Weeks Home Medications: Ambulatory Orders Albuterol Inhaler [Ventolin Hfa Inhaler] 2 puff INH PRN PRN inh 06/05/20 Albuterol Inhaler [Ventolin Hfa Inhaler] 2 puff INH RTQID inh 06/05/20 Apixaban [Eliquis] 5 mg PO BID #60 tab 06/05/20 Azithromycin Tab [Zithromax Tab] 250 mg PO QD #4 tab 06/05/20 Bifidobacterium Infantis [Align] 4 mg PO DAILY cap 06/05/20 Cefdinir 300 mg PO BID #14 capsule 06/05/20 Dexamethasone Tab [Decadron Tab] 4 mg PO DAILY #5 tab 06/05/20 Rxvqqmtewjro-Gwykwupmlfpas-Yrf [Promethazine Vc/Codeine] 5 - 10 ml PO Q6H PRN #120 ml 06/05/20 guaiFENesin ER TAB [Mucinex Tab] 600 mg PO BID tab 06/05/20 Additional Instructions: Please follow-up with your primary care physician in 1 to 2 days. Ensure to return to the emergency department immediately if your oxygen saturations drop Below 92 Return to emergency department today symptoms worsen or do not improve.
[2020-06-17 16:51] VITALS: BP 101/61; TEMP 97.9; O2SAT 95
== END 2020-06-17 16:51 | disposition home or self-care (01) ==
LOC: ER 15:44
DX: U07.1 COVID-19 (principal)